=== PATIENT | female | born 1955 | race Caucasian/White ===

== ENCOUNTER → 2025-03-31 14:45 | Outpatient (REF) | payer OTHER, SELFPAY | LOC: HWRAD 14:45 | PROVIDERS: ATTENDING PHYSICIAN Nurse Practitioner Primary Care | DX: N18.31 Chronic kidney disease, stage 3a (principal) | CPT/HCPCS: 76775 ==

== ENCOUNTER → 2025-07-12 13:19 | Outpatient (REF) | payer OTHER, SELFPAY | LOC: RAD 13:19 | PROVIDERS: ATTENDING PHYSICIAN Nurse Practitioner Primary Care | DX: M85.89 Other specified disorders of bone density and structure, multiple sites (principal) | CPT/HCPCS: 77080 ==

== ENCOUNTER → 2025-08-12 14:32 | Outpatient (REF) | payer OTHER, SELFPAY | LOC: MRI 14:32 | PROVIDERS: ATTENDING PHYSICIAN Nurse Practitioner Primary Care | DX: K75.81 Nonalcoholic steatohepatitis (NASH) (principal) | CPT/HCPCS: 74181; 76391 ==